=== PATIENT | male | born 1985 | race Caucasian/White ===

== ENCOUNTER 2021-04-18 12:40 | Outpatient (CLI) | payer MEDICAID | END 2021-04-18 12:41 | disposition home or self-care (01) | LOC: CSHULT 12:40 | PROVIDERS: ATTEND Family Medicine | DX: E03.9 Hypothyroidism, unspecified (principal) | CPT/HCPCS: 76536 ==

== ENCOUNTER 2022-02-03 06:11 | Day surgery (SDC) | payer OTHER ==
[2022-01-30 11:59] VITALS: BMI 23.1
[2022-02-03] MEDS ORDERED: Midazolam HCl 2 mg/2 ml Vial ONE (08:51)
[2022-02-03] MEDS ORDERED: PROPOFOL 20 ML ONE ×2 (08:52)
== END 2022-02-03 09:55 | disposition home or self-care (01) ==
LOC: CSHSDC 06:11
PROVIDERS: ATTEND Internal Medicine Gastroenterology
PROC: 0DJD8ZZ Inspection of Lower Intestinal Tract, Via Natural or Artificial Opening Endoscopic (ICD-10-PCS; principal; 2022-02-03)
DX: K52.9 Noninfective gastroenteritis and colitis, unspecified (principal); K21.9 Gastro-esophageal reflux disease without esophagitis; R63.4 Abnormal weight loss; Z68.23 Body mass index [BMI] 23.0-23.9, adult; E78.5 Hyperlipidemia, unspecified; E03.9 Hypothyroidism, unspecified; F31.9 Bipolar disorder, unspecified; Z79.899 Other long term (current) drug therapy; Z88.8 Allergy status to other drugs, medicaments and biological substances; Z87.891 Personal history of nicotine dependence; Z90.49 Acquired absence of other specified parts of digestive tract
CPT/HCPCS: J2250; J2704